=== PATIENT | male | born 2000 | race Caucasian/White ===

== ENCOUNTER 2019-11-17 15:33 | Emergency (ER) | payer BC ==
[~2019-11-17] VITALS: Ht 177.8 cm; Wt 79.4 kg
[~2019-11-17 15:33] MED LIST: AMOX500 PO; CHILDREN'S TYLENOL; CODACE30 PO; HYDACE5 PO; RXALBOI INH; SILSUL1TC TOP
[2019-11-17] MEDS ORDERED: Ativan0.5 MG PO (18:00)
== END 2019-11-17 18:24 | disposition home or self-care (01) ==
LOC: ER 15:33
DX: F41.9 Anxiety disorder, unspecified (principal)
CPT/HCPCS: 82947; 99283